=== PATIENT | male | born 1970 | race African-American/Black ===

== ENCOUNTER 2023-06-20 20:54 | Emergency (ER) | payer MEDICAID ==
[~2023-06-20] VITALS: Ht 177.8 cm; Wt 77.0 kg
[2023-06-20 21:01] VITALS: O2SAT 99
[2023-06-21] MEDS ORDERED: ONDANSETRON HCL 4MG/2ML INJ IV STA (00:15)
[2023-06-21] MEDS ORDERED: FAMOTIDINE 20MG/2ML VIAL IV STA (00:15)
[2023-06-21] MEDS ORDERED: SODIUM CHLORIDE 0.9% 1,000 ML IV ONE (00:15)
[2023-06-21] MEDS ORDERED: MORPHINE SULFATE 4 MG/ML CPJ (NOT FOR IM USE) IV STA (00:15)
[2023-06-21 00:43] LABS: BASOPHILS % 0.4 % (0.0-2.0); HEMATOCRIT. 48.5 % (42.0-52.0); HEMOGLOBIN. 16.2 g/dL (14.0-18.0); LYMPHOCYTES % 23.5 % (20.0-50.0); MEAN CORPUSCULAR HEMOGLOBIN 31.4 pg (28.0-32.0); MEAN CORPUSCULAR HGB CONC 33.5 g/dL (31.0-37.0); MEAN CORPUSCULAR VOLUME 93.7 fL (80.0-94.0); MEAN PLATELET VOLUME 8.1 fl (7.4-10.4); MONOCYTES % 19.1 % (2.0-8.0); PLATELET 162 x1000/uL (130-400); RED BLOOD CELL COUNT 5.18 mill/uL (4.7-6.1)
[2023-06-21 00:46] LABS: DIFFERENTIAL COMMENT 1
[2023-06-21 01:02] LABS: ALANINE AMINOTRANSFERASE 21 IU/L (10-49); ALBUMIN 4.5 g/dL (3.2-4.8); ASPARTATE AMINOTRANSFERASE 41 IU/L (<34); BILIRUBIN TOTAL 0.7 mg/dL (0.1-1.0); CALCIUM 9.6 mg/dL (8.7-10.4); CARBON DIOXIDE 29 mEq/L (21-32); CHLORIDE 104 mEq/L (98-107); GLUCOSE 137 mg/dL (70-105); POTASSIUM 3.8 mEq/L (3.5-5.1); PROTEIN TOTAL 7.7 g/dL (6.0-8.3); SODIUM 141 mEq/L (136-145); TROPONIN I HIGH SENSITIVITY 10 ng/L (3.0-53); UREA NITROGEN BLOOD 11 mg/dL (9-23)
[2023-06-21 03:09] VITALS: TEMP 98.3
[2023-06-21] MEDS ORDERED: PROT20 MT (04:21)
[2023-06-21 05:08] VITALS: BP 149/83; PULSE 70; RESP 19
== END 2023-06-21 05:14 | disposition home or self-care (01) ==
LOC: ER 20:54
DX: R10.12 Left upper quadrant pain (principal); F12.90 Cannabis use, unspecified, uncomplicated; Z88.8 Allergy status to other drugs, medicaments and biological substances
CPT/HCPCS: 99285; 80053; 83690; 85025; 84484; 36415; 71045; 93005; 96361; 96374; 96375; J3490; J2405; J2270; J7030; Z7610